=== PATIENT | male | born 1980 | race Caucasian/White ===

== ENCOUNTER 2018-07-31 23:55 | Emergency (ER) | payer OTHER ==
[~2018-07-31] VITALS: Ht 175.2 cm; Wt 88.5 kg
[2018-08-01] MEDS ORDERED: LISINOPRIL20 MG PO (00:19)
[2018-08-01] MEDS ORDERED: PROPRANOLOL HCL20 MG PO (00:21)
[2018-08-01] MEDS ORDERED: AMBIEN10 M1 JT (00:22)
[2018-08-01] MEDS ORDERED: CYCLOBENZAPRINE5 M3 PO (00:22)
== END 2018-08-01 00:53 | disposition home or self-care (01) ==
LOC: ED 23:55
DX: F41.0 Panic disorder [episodic paroxysmal anxiety] (principal); F41.9 Anxiety disorder, unspecified